=== PATIENT | female | born 1990 | race Caucasian/White ===

== ENCOUNTER 2018-04-25 22:29 | Emergency (ER) | payer MEDICAID ==
[~2018-04-25] VITALS: Ht 165.1 cm; Wt 102.4 kg
[~2018-04-25 22:29] MED LIST: DIPH25CA83 PO; PNV91TAB3 PO
[2018-04-25 22:34] VITALS: BP 145/81
== END 2018-04-25 23:32 | disposition home or self-care (01) ==
LOC: ER 22:30
DX: L02.211 Cutaneous abscess of abdominal wall (principal); L53.8 Other specified erythematous conditions; Z86.14 Personal history of Methicillin resistant Staphylococcus aureus infection; Z98.890 Other specified postprocedural states; Z79.899 Other long term (current) drug therapy
CPT/HCPCS: 99281

== ENCOUNTER 2018-12-09 20:03 | Emergency (ER) | payer MEDICAID ==
[~2018-12-09] VITALS: Ht 165.1 cm; Wt 215.0 kg
[~2018-12-09 20:03] MED LIST changes: +LIDOcaine 1% W/epiNEPHrine 1:100,000 20ml vial ONE
[2018-12-09] MEDS ORDERED: LIDOcaine 1% w/epiNEPHrine 1:200,000 30ml vial IM ONE (20:40)
[2018-12-09] MEDS ORDERED: sulfamethoxazole/trimethoprim DS (800/160mg) tablet PO ONE (20:40)
[2018-12-09] MEDS ORDERED: SULF1TAB49 PO (20:47)
[2018-12-09 21:01] VITALS: BP 137/88
== END 2018-12-09 21:10 | disposition home or self-care (01) ==
LOC: ER 20:04
DX: L02.211 Cutaneous abscess of abdominal wall (principal); F31.9 Bipolar disorder, unspecified; F17.200 Nicotine dependence, unspecified, uncomplicated; Z98.890 Other specified postprocedural states; Z86.14 Personal history of Methicillin resistant Staphylococcus aureus infection; Z79.2 Long term (current) use of antibiotics; Z79.899 Other long term (current) drug therapy
CPT/HCPCS: 10060; 99283

== ENCOUNTER 2020-12-11 19:17 | Emergency (ER) | payer MEDICAID ==
[~2020-12-11 19:17] MED LIST changes: -LIDOcaine 1% W/epiNEPHrine 1:100,000 20ml vial ONE
== END 2020-12-11 20:02 | disposition left against medical advice (07) ==
LOC: ER 19:18
DX: K13.79 Other lesions of oral mucosa (principal); Z53.21 Procedure and treatment not carried out due to patient leaving prior to being seen by health care provider